=== PATIENT | female | born 1970 | race American Indian/Alaskan Native ===

== ENCOUNTER 2016-11-12 16:03 | Outpatient (CLI) | payer OTHER ==
--- NOTE | 2016-11-13 09:58 | Mammography Report ---
BILATERAL DIGITAL SCREENING MAMMOGRAM with CAD : 11/12/16 16:03:00 CLINICAL: Routine screening. COMPARISON:10/04/15 FINDINGS: The breasts are heterogeneously dense, which may obscure small masses. No mass, architectural distortion or suspicious calcifications. IMPRESSION: No mammographic evidence of malignancy. BI-RADS CATEGORY: 2 -- Benign RECOMMENDATION: Routine mammographic screening in one year. COMMENT: Patient follow-up letters are generated by our [employer] application.
== END 2016-11-12 16:04 | disposition home or self-care (01) ==
LOC: SPVWC 16:03
PROVIDERS: ATTEND Obstetrics & Gynecology
DX: Z12.31 Encounter for screening mammogram for malignant neoplasm of breast (principal)
CPT/HCPCS: 77067; G0202

== ENCOUNTER 2017-12-01 07:54 | Outpatient (CLI) | payer BC ==
--- NOTE | 2017-12-01 15:46 | Mammography Report ---
BILATERAL DIGITAL SCREENING MAMMOGRAM with CAD: 12/01/17 07:54:00 CLINICAL: Routine screening. COMPARISON:11/12/16, 11/05/15 and 10/04/15 FINDINGS: The breasts are mostly fatty with a few bilateral scattered residual fibroglandular densities. A right outer asymmetry on the MLO view requires additional imaging.No architectural distortion or suspicious calcifications.The left breast is negative. IMPRESSION: Right asymmetry requiring further workup. BI-RADS CATEGORY: 0 -- Additional Imaging Evaluation Required RECOMMENDATION: Recall for right ML and spot magnification CC views and right breast ultrasound if needed. ACR BI-RADS MAMMOGRAPHIC CODES: 0 = Needs additional imaging evaluation; 1 = Negative; 2 = Benign; 3 = Probably benign; 4 = Suspicious; 5 = Malignant; 6 = Known biopsy-proven malignancy COMMENT: 1. Dense breast tissue, i.e., adenosis, fibrocystic changes, etc., may obscure an underlying neoplasm. 2. Approximately 10% of cancers are not detected with mammography. 3. A negative mammography report should not delay biopsy if a clinically suspicious mass is present. COMMENT: Patient follow-up letters are generated via our [employer] application.
== END 2017-12-01 07:55 | disposition home or self-care (01) ==
LOC: MAMMO 07:54
PROVIDERS: ATTEND Obstetrics & Gynecology
DX: Z12.31 Encounter for screening mammogram for malignant neoplasm of breast (principal)
CPT/HCPCS: 77067